=== PATIENT | male | born 1985 | race Caucasian/White ===

== ENCOUNTER 2019-08-26 14:06 | Emergency (ER) | payer SELFPAY ==
[~2019-08-26] VITALS: Ht 185.4 cm; Wt 143.2 kg
[2019-08-26 16:37] VITALS: BP 128/76
== END 2019-08-26 16:41 | disposition home or self-care (01) ==
LOC: EMS 14:07
DX: R76.11 Nonspecific reaction to tuberculin skin test without active tuberculosis (principal); K59.00 Constipation, unspecified; F17.210 Nicotine dependence, cigarettes, uncomplicated; F11.90 Opioid use, unspecified, uncomplicated; Z11.1 Encounter for screening for respiratory tuberculosis